=== PATIENT | male | born 2000 ===

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

== ENCOUNTER 2020-04-28 14:44 | Emergency (ER) | payer OTHER ==
[~2020-04-28] VITALS: Ht 172.7 cm; Wt 85.0 kg
[~2020-04-28 14:44] MED LIST: DIVA500T2 PO
--- NOTE | 2020-04-28 14:55 | NUR ---
THIS PT PRESENTED TO THE ED AFTER HAVING A WITNESSED SZ THAT LASTED LESS THAN A MINUTE. PT IS A&OX4, GCS OF 15, STATES HE HAS A MILD FERREIRA, "I JUST FEEL LIKE I'M A LITTLE DEHYDRATED." PT'S DEPAKOTE WAS UP'D IN OCTOBER TO 100MG TWICE A DAY AND THIS IS HIS FIRST SZ SINCE THEN. PT STATES HE'S BEEN DRINKING FOR THE PAST COUPLE DAYS. PT EDUCATED ABOUT ETOH AND SZ.
[2020-04-28] MEDS ORDERED: ONDANSETRON ODT 4 MG ONE (15:50)
[2020-04-28] MEDS ORDERED: THIAMINE 100MG TABLET ONE (15:50)
--- NOTE | 2020-04-28 15:50 | NUR ---
PT AMBULATORY TO ROOM, STEADY GAIT.
--- NOTE | 2020-04-28 15:56 | NUR ---
BEDSIDE REPORT GIVEN TO ELLY MANSFIELD.
[2020-04-28 16:00] LABS: BASOPHILS # (AUTO) 0.03 x10^3/uL (0-0.3); BASOPHILS % (AUTO) 0 % (0-1); EOSINOPHILS # (AUTO) 0.04 x10^3/uL (0-0.8); EOSINOPHILS % (AUTO) 0 % (1-7); LYMPHOCYTES # (AUTO) 1.53 x10^3/uL (1-6.1); LYMPHOCYTES % (AUTO) 14 % (22-44); MD NO; MEAN CORPUSCULAR HEMOGLOBIN 30.8 pg (27.5-34.5); MEAN CORPUSCULAR HGB CONC 33.6 g/dL (33.2-36.2); MEAN CORPUSCULAR VOLUME 91.8 fL (81-97); MEAN PLATELET VOLUME 9.4 fL (7.4-10.4); MONOCYTES # (AUTO) 0.91 x10^3/uL (0-1.4); MONOCYTES % (AUTO) 8 % (2-9); NEUTROPHILS # (AUTO) 8.58 x10^3/uL (1.8-8.0); NEUTROPHILS % (AUTO) 77 % (42-75); PLATELET COUNT 227 x10^3/uL (130-400); RED BLOOD COUNT 4.67 x10^6/uL (4.38-5.82); RED CELL DISTRIBUTION WIDTH 13.4 % (9.4-14.8)
[2020-04-28] MEDS ORDERED: THIAMINE 100MG TABLET PO ONE (16:00)
[2020-04-28] MEDS ORDERED: ONDANSETRON ODT 4 MG PO ONE (16:00)
[2020-04-28] MEDS ORDERED: SODIUM CHLORIDE FLUSH 10ML SYR IVF ONE (16:00)
[2020-04-28] MEDS ORDERED: SODIUM CHLORIDE 0.9% 1,000ML IVBOLUS ONE (16:00)
[2020-04-28 16:09] LABS: ALANINE AMINOTRANSFERASE 59 U/L (12-78); ALBUMIN 3.6 g/dL (3.4-5.0); ANION GAP 8 mmol/L (5-15); CALCIUM 8.7 mg/dL (8.5-10.1); CHLORIDE 105 mmol/L (98-107); CREATININE 1.18 mg/dL (0.7-1.3)
[2020-04-28 16:11] LABS: ALKALINE PHOSPHATASE 56 U/L (45-117); BILIRUBIN,TOTAL 0.4 mg/dL (0.2-1.0); TOTAL PROTEIN 7.2 g/dL (6.4-8.2)
--- NOTE | 2020-04-28 16:24 | NUR ---
CHART UP FOR MD RECHECK. PT AWARE.
--- NOTE | 2020-04-28 16:35 | NUR ---
DR. CHARLTON AT BEDSIDE.
[2020-04-28 16:57] VITALS: BP 127/87
== END 2020-04-28 17:32 | disposition home or self-care (01) ==
LOC: ED 17:08
DX: F10.239 Alcohol dependence with withdrawal, unspecified (principal); R56.9 Unspecified convulsions; R51 Headache; R11.0 Nausea; R00.0 Tachycardia, unspecified; Y90.0 Blood alcohol level of less than 20 mg/100 ml
CPT/HCPCS: 36415; 80053; 80307; 82977; 85025; 93005; 96360; 99284; J7030; Q0162